=== PATIENT | female | born 1940 | race Caucasian/White ===

== ENCOUNTER 2022-01-01 10:00 | Outpatient (RCR) | payer MEDICARE, OTHER, SELFPAY ==
--- NOTE | 2021-11-28 09:52 | PT.OPEX ---
PT [place] Outpatient Eval PT [facility] Outpatient Eval Start: 11/27/21 09:41 Freq: Status: Active Protocol: Document 11/28/21 09:18 PAPI (Rec: 11/28/21 09:18 CLCharan [id number]) E-signed By Doreen Almanza PT Physical Therapy Outpatient Evaluation Insurance Information Recert Due Date 02/20/22 Insurance Name Medicare B Medical Diagnosis DDD / LBP Treating Diagnosis Acute LBP, reduced ease of ADL 's and self cares Reduced walk/stand and sit tolerances Trunk and core weakness Referring MD Dr Nabeel Nava Subjective Subjective Erika reports having LBP for the past 20+ years. It just comes and goes. It usually is better when I am walking regularly, which I have not. I just had X-Rays done and previous MRI. I do have some scoliosis, but nothing new. I have had injections, but nothing helps [facility]. I have not tried traction or TENS. We leave for [place] in about a month. I have been given exercises, but I don't do them. I really want to get started and cont there. Right now, trigger of not being able to sleep is what got me into PT. Just sitting even causes pain. Ok if in the recliner, but stiff chair might start pain in 15 min. Worse in the morning. Ice helps a bit, but again, I don't do it regularly. Walking feels better. I still do all of my home chores, just rest a bit. I use my cane if I walk more than a block. I really want to get back to walking a mile/30 min at least once per day. Pain Comments 0-7/10 andrea LB but worse on the Rt side. Pain now wraps around to the front of my pelvis. Denies N/T into the leg, but I do have occasional pain at lateral side of Rt leg - not constant though. Date of Last Physician Visit 11/13/21 Occupation Never has worked out of the home Precautions Treatment Precautions/Contraindications DDD / Arthritis, Hypertension, Osteoperosis Weight Bearing Status Full Weight Bearing Objective Range of Motion Trunk AROM: FF WNL and pain free / EXT 10% of normal / Andrea SB 75% of normal/ Andrea ROT 75% of normal. Dbl leg squat to knee flex of about 70 deg Strength Poor core isolation and activation Weakness of hip EXT and ABD andrea Palpation Very minimal movement at Rt L3 -S1 and upper Rt SIJ Much pain isolated here Balance & Gait Reduced trunk rotation UB on LB. reduced hip EXT / stride length Reduced WB into Rt LE. She states it sometimes feels like her leg will buckle Posture Flattened lumbar lordosis Other/Pertinent Objective Very minimal Rt SIJ movement in supine or prone Functional Test Performed & Score (-) slump test andrea (-) SLR test andrea Assessment Assessment/Impression 80 yo with DX of DDD and Acute LBP. She arrived to dept via IND ambulation without any AD. She presents with reduced andrea hip EXT, reduced UT/LT seperation with gait. She has slightly reduced WB into Rt LE . Significant reduction in trunk EXT with localized pain at Rt LB and Rt SIJ. (-) slump test and SLR test for Sciatic nerve involvement. However, very minimal AP or PA movement with light to moderate manual presure through lower lumbar vert and Rt SIJ. She has a slight Rt ant ilial rotation and reduced Lt to Rt side glide in supine. Pain at Rt SIJ and LB with spring mob in AP direction Rt. Lt leg is roughly an inch shorter. Weakness at andrea hip EXT and ABD. Poor core isolation and activation. She will benefit from MET/Mobs/STM and progressive stretch and strengthening to stabilize pelvis and improve movement in LB on pelvis. Also, trial heel lift Lt leg. Thank you for this referral. Plan of Care Rehabilitation Potential Good Physical Therapy Goals In 4-6 visits, Erika will be able to: 1. Report increased sitting tolerance to 30 min average 2. Walk at least 2 blocks without increased LBP greater than 3/10 75% of the time In 8-10 visits, Erika will be able to: 1. IND in entire HEP to cont with self cares once DC 2. Sleep up to 6 hours without awakening due to LB/SIJ pain 90% of the time 3. LTG of resume walking for exercise 1 mile daily Coordination/Communication With Referral Source Treatment Plan/Direct Interventions Joint Mobilization,Manual Therapy,Self-Care/Home Management,Therapeutic Activities,Therapeutic Exercises Frequency/Duration 2X/Wk for 9 weeks per physician referral. Patient Will Be Discharged From Therapy Completion of LTG(s),Skills Plateau,Independent w/HEP, Independently Progressing Evaluation Billing Untimed Code Treatment Minutes 34 Complexity Moderate Certification Information Initial Certification Date 11/28/21 Ending Certification Date 02/20/22 Provider Signature Shows Agreement With POC & Medical Necessity Physician Comment/Change Comment or Changes Physician NPI Number #
== END 2022-01-01 12:45 | disposition home or self-care (01) ==
PROVIDERS: PCP Family Medicine; Visit Provider Family Medicine
DX: M54.50 Low back pain, unspecified (principal); Z51.89 Encounter for other specified aftercare
CPT/HCPCS: 97110; 97140; 97162

== ENCOUNTER 2022-05-28 12:58 | Emergency (ER) | payer MEDICARE, OTHER, SELFPAY ==
[2022-05-28 13:19] VITALS: BP 175/83; PULSE 83; RESP 16; TEMP 36.9; O2SAT 97; BMI 31.1
[2022-05-28 14:24] LABS: Troponin, Point-of-Care* 0.27 ng/ml (0.01-0.04)
[2022-05-28 14:38] LABS: Lactate* 1.1 mmol/L (0.5-1.9)
[2022-05-28 14:40] VITALS: PULSE 63; O2SAT 97
[2022-05-28 14:40] LABS: Basophils Absolute Auto 0.03 K/uL (0.00-0.30); Basophils Percent Auto 0.5 % (0.0-3.0); Eosinophils Absolute Auto 0.02 K/uL (0.00-0.50); Eosinophils Percent Auto 0.3 % (0.0-7.0); Hematocrit 43.6 % (33.0-51.0); Hemoglobin* 14.7 gm/dL (12.0-16.0); Lymphocytes Percent Auto 16.7 % (20-44); Mean Corpuscular HGB Conc 34 gm/dL (32-36); Mean Corpuscular Hemoglobin 31 pg (26-34); Mean Corpuscular Volume 91 fL (80-100); Monocytes Percent Auto 8.6 % (0.0-11.0); Neutrophils Percent Auto 73.9 % (42.0-72.0); Platelet Count* 234 K/uL (140-440); White Blood Count* 5.94 K/uL (4.50-11.00)
[2022-05-28 14:41] VITALS: BP 123/54; PULSE 65; O2SAT 96
[2022-05-28 14:42] LABS: Slide Review Reflex No
[2022-05-28] MEDS: ASPIRIN 81 MG TAB.CHEW 324 MG PO (14:44)
[2022-05-28 14:45] VITALS: PULSE 65; O2SAT 97
--- NOTE | 2022-05-28 14:48 | ED_ITS ---
HPI - General Adult General Date Seen: 05/28/22 Chief complaint: Shortness of Breath/Dyspnea Stated complaint: Back/shoulder pain, chills, shakes Time Seen by Provider: 05/28/22 13:02 Source: patient Mode of arrival: ambulatory Limitations: no limitations History of Present Illness HPI narrative: Patient is a 81-year-old woman who says that when she woke up this morning she developed some pain in the back of her neck that went back into the back of her shoulders and down her arms. She does occasionally have pain in her neck, she has some degenerative disc disease, but typically does not have pain that goes into her arms. She says this pain was relatively severe, and as a result, she took 2 of her 's oxycodone. He has esophageal cancer. She does not typically take oxycodone. She says after about an hour, the neck pain improved and is largely gone, however she was left feeling somewhat shaky and fatigued. She just does not generally feel very well at this point. She has not had any chest pain although she has felt a little short of breath. She denies nausea or vomiting. She has not had fevers or cough. She denies similar previous symptoms. She does drink she says a couple of glasses of wine nightly. She does not smoke, she quit a number of years ago. Related Data Home Medications Medication Instructions Recorded Confirmed alendronate 70 mg tablet 70 mg PO .Every 7 Days 11/13/21 11/13/21 amlodipine 10 mg tablet 10 mg PO DAILY 11/13/21 11/13/21 aspirin 81 mg tablet,delayed 81 mg PO DAILY 11/13/21 11/13/21 release calcium carbonate 500 mg calcium 500 mg PO DAILY 11/13/21 11/13/21 (1,250 mg) tablet cholecalciferol (vitamin D3) 25 25 mcg PO DAILY 11/13/21 11/13/21 mcg (1,000 unit) tablet cyanocobalamin (vitamin B-12) 1,000 mcg PO DAILY 11/13/21 11/13/21 1,000 mcg tablet,extended release glucosamine sulfate 500 mg capsule 500 mg PO 11/13/21 11/13/21 hydrochlorothiazide 25 mg tablet 25 mg PO DAILY 11/13/21 11/13/21 levothyroxine 75 mcg tablet 75 mcg PO DAILY 11/13/21 11/13/21 vitamins A,C,E-ydcw-hslpaj 2,148 2 tab PO BID 11/13/21 11/13/21 mcg-113 mg-45 mg-17.4 mg tablet (PreserVision AREDS) Previous Rx's Medication Instructions Recorded methylprednisolone 4 mg tablets in See Rx Instructions PO PER PKG DIR 11/13/21 a dose pack (Medrol (John)) #21 ea Allergies Allergy/AdvReac Type Severity Reaction Status Date / Time enalapril Allergy Intermediate Rash, dizzy Verified 11/13/21 13:02 cephalexin Allergy Mild GI upset, Verified 11/13/21 13:02 vomiting Malaria Med Allergy Intermediate Rash Uncoded 11/13/21 13:02 Review of Systems Status of ROS: Reports: 10 or more systems reviewed and unremarkable except as noted in History and below [facility] Medical History Class 1 obesity Diverticulitis of intestine Left lower quadrant pain Surgical History History of bilateral inguinal hernia repair (06/2016) History of blepharoplasty (07/2016) History of tonsillectomy History of total abdominal hysterectomy and bilateral salpingo-oophorectomy Hx of cholecystectomy Family History Father Coronary artery disease, Onset Age: 65 High blood pressure Sister Thyroid disease Family/Other High blood pressure Mother Stroke, Onset Age: 92 High blood pressure Other Osteoarthritis Osteoporosis Social History Narrative: Exercises regularly- walking, weights 5/week , living in [place] Non-smoker Social drinker- 1 cocktail daily Smoking Status: Never smoker Exam Narrative: Exam Narrative: Vital signs as noted above. In general, an alert, well-appearing patient. Head: Normocephalic, atraumatic. Eyes: Pupils are equal reactive. Extraocular movements are full. Conjunctivae are normal. ENT: Mucous membranes are moist. Throat is normal. Neck: Supple without lymphadenopathy. Heart: Regular rate and rhythm. No murmur or rub. Lungs: Clear bilaterally. No increased work of breathing, crackles or wheezes. Abdomen: Soft and nontender. No organomegaly. Extremities: Well perfused. No edema. No calf tenderness. Pulses intact. Neurologic: Patient is alert and oriented to person and place. Speech is fluent. Face is symmetric. Moves all extremities equally. Affect: Normal. Skin: Warm and dry. Well perfused. Const: Vital Signs, click to edit/add: Vital Signs - 24 hr 05/28/22 13:19 05/28/22 14:57 05/28/22 14:40 Temperature 98.5 F Pulse Rate 63 Pulse Rate [Pulse Oximeter] 83 Respiratory Rate 16 Blood Pressure Blood Pressure [Le ft Upper Arm] 175/83 H Pulse Oximetry 97 96 97 Oxygen Delivery Me thod Room Air 05/28/22 14:41 05/28/22 14:45 Temperature Pulse Rate 65 65 Pulse Rate [Pulse Oximeter] Respiratory Rate Blood Pressure 123/54 L Blood Pressure [Le ft Upper Arm] Pulse Oximetry 96 97 Oxygen Delivery Me thod Documenting provider has reviewed patient's vital signs: yes Course Course Hospital Course: On arrival, patient had an EKG which shows a right bundle branch block. She has T-wave inversions noted in leads 3 and F, she does not have any acute ST segment changes. No previous EKGs available for comparison. She did have an echo done in 2014 at which time she had somewhat hyperdynamic left ventricular function with an EF of 70-75% and no regional wall motion abnormalities. She had a CBC showing a normal white blood cell count and hemoglobin of 15, a lactate of 1.1 and her point of care troponin returned at 0.27. A lab troponin is pending at this time. Other labs are also pending. She has not had any specific complaints at this time, an IV was established, she is given an aspirin as well as some normal saline IV. She is maintained on the monitor and oximeter. Lab troponin is less than 0.1, suggesting that the point of care troponin is probably falsely elevated. Remainder of her labs are unremarkable. Electrolytes are normal LFTs are normal, CRP is 0.5. TSH is 2.1. Urinalysis is negative. COVID is negative. Blood alcohol is less than 0.01. I do think it is reasonable to recheck another point of care troponin and this is pending, but I do think most likely her symptoms are due to taking a rather large dose of oxycodone this morning. Other considerations included acute coronary syndrome, anemia, thyroid disease or other metabolic derangement, urinary tract infection or other infectious process, but these have been ruled out. Assuming the repeat troponin is negative, patient can go home. Follow-up with primary care as needed. Return for any recurrent or severe symptoms says these would be unexpected if symptoms were due to oxycodone. She does have some residual soreness in her trapezius muscles bilaterally, we talked about a little bit, she had some Tylenol here and can use that at home. We talked about heat, ice, Biofreeze, etcetera. See primary care if this persists or worsens. Vital Signs Vital signs: Initial Vital Signs Temperature 98.5 F 05/28/22 13:19 Temperature Source Temporal Artery Scan 05/28/22 13:19 Pulse Rate 83 05/28/22 13:19 Pulse Rhythm 05/28/22 13:19 Respiratory Rate 16 05/28/22 13:19 Blood Pressure 175/83 H 05/28/22 13:19 Blood Pressure Mean 113 05/28/22 13:19 Pulse Oximetry 97 05/28/22 13:19 Oxygen Delivery Method 05/28/22 13:19 Vital Signs Temperature 98.5 F 05/28/22 13:19 Pulse Rate 83 05/28/22 13:19 Respiratory Rate 16 05/28/22 13:19 Blood Pressure 175/83 H 05/28/22 13:19 Pulse Oximetry 97 05/28/22 13:19 Oxygen Delivery Method 05/28/22 13:19 Temperature 98.5 F 05/28/22 13:19 Pulse Rate 65 05/28/22 14:45 Respiratory Rate 16 05/28/22 13:19 Blood Pressure 123/54 L 05/28/22 14:41 Pulse Oximetry 96 05/28/22 14:57 Oxygen Delivery Method 05/28/22 13:19 Medical Decision Making Lab Data Labs: Lab Results 05/28/22 05/28/22 05/28/22 Range/Units 13:38 13:39 14:10 WBC (4.50-11.00) K/uL RBC (4.00-5.20) m/uL Hgb (12.0-16.0) gm/dL Hct (33.0-51.0) % MCV (80-100) fL MCH (26-34) pg MCHC (32-36) gm/dL RDW Coeff of Carmina (11.5-15.5) % Plt Count (140-440) K/uL Neut % (Auto) (42.0-72.0) % Lymph % (Auto) (20-44) % [place] % (Auto) (0.0-11.0) % Eos % (Auto) (0.0-7.0) % Baso % (Auto) (0.0-3.0) % Neut # (Auto) (1.7-7.0) K/uL Lymph # (Auto) (0.90-2.90) K/uL [place] # (Auto) (0.00-0.90) K/UL Eos # (Auto) (0.00-0.50) K/uL Baso # (Auto) (0.00-0.30) K/uL Sodium (135-149) mmol/L Potassium (3.6-5.1) mmol/L Chloride (96-114) mmol/L Carbon Dioxide (20-32) mmol/L BUN (7-30) mg/dL Creatinine (0.5-1.5) mg/dL Estimated Creat Clear Estimated GFR ml/min Glucose (60-115) mg/dL Lactate (0.5-1.9) mmol/L Calcium (8.4-10.6) mg/dL Total Bilirubin (0.1-1.5) mg/dL Direct Bilirubin (0.0-0.5) mg/dL AST (12-35) U/L ALT (4-35) U/L Alkaline Phosphatase (40-150) U/L Troponin I < 0.01 L (0.01-0.04) ng/mL C-Reactive Protein (0.5-1.0) mg/dL Total Protein (6.0-8.3) g/dL Albumin (3.3-5.0) g/dL TSH (0.270-4.200) uIU/mL Urine Color (Yellow) Urine Appearance (Clear) Urine pH (5.0-8.5) Ur Specific [place] (1.000-1.030) Urine Protein (Negative) Urine Glucose (UA) (Negative) Urine Ketones (Negative) Urine Blood (Negative) Urine Nitrite (Negative) Urine Bilirubin (Negative) Urine Urobilinogen (0.2-1.0) Ur Leukocyte Esterase (Negative) Urine RBC (0-2) Urine WBC (0-5) Urine WBC Clumps (None) Ur Squamous Epith Cells (None-Few) Urine Bacteria (None) Ethyl Alcohol < 0.01 L (0.01-0.03) % SARS-CoV-2 (PCR) Negative SARS-CoV-2 (Negative) POC Troponin I 0.27 H (0.01-0.04) ng/ml 05/28/22 05/28/22 05/28/22 Range/Units 14:30 14:30 14:30 WBC 5.94 (4.50-11.00) K/uL RBC 4.80 (4.00-5.20) m/uL Hgb 14.7 (12.0-16.0) gm/dL Hct 43.6 (33.0-51.0) % MCV 91 (80-100) fL MCH 31 (26-34) pg MCHC 34 (32-36) gm/dL RDW Coeff of Carmina 14.0 (11.5-15.5) % Plt Count 234 (140-440) K/uL Neut % (Auto) 73.9 H (42.0-72.0) % Lymph % (Auto) 16.7 L (20-44) % [place] % (Auto) 8.6 (0.0-11.0) % Eos % (Auto) 0.3 (0.0-7.0) % Baso % (Auto) 0.5 (0.0-3.0) % Neut # (Auto) 4.40 (1.7-7.0) K/uL Lymph # (Auto) 1.00 (0.90-2.90) K/uL [place] # (Auto) 0.50 (0.00-0.90) K/UL Eos # (Auto) 0.02 (0.00-0.50) K/uL Baso # (Auto) 0.03 (0.00-0.30) K/uL Sodium 137 (135-149) mmol/L Potassium 3.9 (3.6-5.1) mmol/L Chloride 104 (96-114) mmol/L Carbon Dioxide 29 (20-32) mmol/L BUN 19 (7-30) mg/dL Creatinine 0.6 (0.5-1.5) mg/dL Estimated Creat Clear 36.08 Estimated GFR 91 ml/min Glucose 103 (60-115) mg/dL Lactate (0.5-1.9) mmol/L Calcium 9.4 (8.4-10.6) mg/dL Total Bilirubin 0.7 (0.1-1.5) mg/dL Direct Bilirubin 0.1 (0.0-0.5) mg/dL AST 48 H (12-35) U/L ALT 28 (4-35) U/L Alkaline Phosphatase 65 (40-150) U/L Troponin I (0.01-0.04) ng/mL C-Reactive Protein 0.5 (0.5-1.0) mg/dL Total Protein 7.9 (6.0-8.3) g/dL Albumin 4.6 (3.3-5.0) g/dL TSH (0.270-4.200) uIU/mL Urine Color (Yellow) Urine Appearance (Clear) Urine pH (5.0-8.5) Ur Specific [place] (1.000-1.030) Urine Protein (Negative) Urine Glucose (UA) (Negative) Urine Ketones (Negative) Urine Blood (Negative) Urine Nitrite (Negative) Urine Bilirubin (Negative) Urine Urobilinogen (0.2-1.0) Ur Leukocyte Esterase (Negative) Urine RBC (0-2) Urine WBC (0-5) Urine WBC Clumps (None) Ur Squamous Epith Cells (None-Few) Urine Bacteria (None) Ethyl Alcohol (0.01-0.03) % SARS-CoV-2 (PCR) (Negative) POC Troponin I (0.01-0.04) ng/ml 05/28/22 05/28/22 05/28/22 Range/Units 14:30 14:30 15:12 WBC (4.50-11.00) K/uL RBC (4.00-5.20) m/uL Hgb (12.0-16.0) gm/dL Hct (33.0-51.0) % MCV (80-100) fL MCH (26-34) pg MCHC (32-36) gm/dL RDW Coeff of Carmina (11.5-15.5) % Plt Count (140-440) K/uL Neut % (Auto) (42.0-72.0) % Lymph % (Auto) (20-44) % [place] % (Auto) (0.0-11.0) % Eos % (Auto) (0.0-7.0) % Baso % (Auto) (0.0-3.0) % Neut # (Auto) (1.7-7.0) K/uL Lymph # (Auto) (0.90-2.90) K/uL [place] # (Auto) (0.00-0.90) K/UL Eos # (Auto) (0.00-0.50) K/uL Baso # (Auto) (0.00-0.30) K/uL Sodium (135-149) mmol/L Potassium (3.6-5.1) mmol/L Chloride (96-114) mmol/L Carbon Dioxide (20-32) mmol/L BUN (7-30) mg/dL Creatinine (0.5-1.5) mg/dL Estimated Creat Clear Estimated GFR ml/min Glucose (60-115) mg/dL Lactate 1.1 (0.5-1.9) mmol/L Calcium (8.4-10.6) mg/dL Total Bilirubin (0.1-1.5) mg/dL Direct Bilirubin (0.0-0.5) mg/dL AST (12-35) U/L ALT (4-35) U/L Alkaline Phosphatase (40-150) U/L Troponin I (0.01-0.04) ng/mL C-Reactive Protein (0.5-1.0) mg/dL Total Protein (6.0-8.3) g/dL Albumin (3.3-5.0) g/dL TSH 2.150 (0.270-4.200) uIU/mL Urine Color Yellow (Yellow) Urine Appearance Clear (Clear) Urine pH 7.0 (5.0-8.5) Ur Specific [place] 1.010 (1.000-1.030) Urine Protein Negative (Negative) Urine Glucose (UA) Negative (Negative) Urine Ketones Negative (Negative) Urine Blood Negative (Negative) Urine Nitrite Negative (Negative) Urine Bilirubin Negative (Negative) Urine Urobilinogen 0.2 (0.2-1.0) Ur Leukocyte Esterase Negative (Negative) Urine RBC 0-2 (0-2) Urine WBC 0-2 (0-5) Urine WBC Clumps None (None) Ur Squamous Epith Cells None (None-Few) Urine Bacteria None (None) Ethyl Alcohol (0.01-0.03) % SARS-CoV-2 (PCR) (Negative) POC Troponin I (0.01-0.04) ng/ml 05/28/22 Range/Units 16:10 WBC (4.50-11.00) K/uL RBC (4.00-5.20) m/uL Hgb (12.0-16.0) gm/dL Hct (33.0-51.0) % MCV (80-100) fL MCH (26-34) pg MCHC (32-36) gm/dL RDW Coeff of Carmina (11.5-15.5) % Plt Count (140-440) K/uL Neut % (Auto) (42.0-72.0) % Lymph % (Auto) (20-44) % [place] % (Auto) (0.0-11.0) % Eos % (Auto) (0.0-7.0) % Baso % (Auto) (0.0-3.0) % Neut # (Auto) (1.7-7.0) K/uL Lymph # (Auto) (0.90-2.90) K/uL [place] # (Auto) (0.00-0.90) K/UL Eos # (Auto) (0.00-0.50) K/uL Baso # (Auto) (0.00-0.30) K/uL Sodium (135-149) mmol/L Potassium (3.6-5.1) mmol/L Chloride (96-114) mmol/L Carbon Dioxide (20-32) mmol/L BUN (7-30) mg/dL Creatinine (0.5-1.5) mg/dL Estimated Creat Clear Estimated GFR ml/min Glucose (60-115) mg/dL Lactate (0.5-1.9) mmol/L Calcium (8.4-10.6) mg/dL Total Bilirubin (0.1-1.5) mg/dL Direct Bilirubin (0.0-0.5) mg/dL AST (12-35) U/L ALT (4-35) U/L Alkaline Phosphatase (40-150) U/L Troponin I (0.01-0.04) ng/mL C-Reactive Protein (0.5-1.0) mg/dL Total Protein (6.0-8.3) g/dL Albumin (3.3-5.0) g/dL TSH (0.270-4.200) uIU/mL Urine Color (Yellow) Urine Appearance (Clear) Urine pH (5.0-8.5) Ur Specific [place] (1.000-1.030) Urine Protein (Negative) Urine Glucose (UA) (Negative) Urine Ketones (Negative) Urine Blood (Negative) Urine Nitrite (Negative) Urine Bilirubin (Negative) Urine Urobilinogen (0.2-1.0) Ur Leukocyte Esterase (Negative) Urine RBC (0-2) Urine WBC (0-5) Urine WBC Clumps (None) Ur Squamous Epith Cells (None-Few) Urine Bacteria (None) Ethyl Alcohol (0.01-0.03) % SARS-CoV-2 (PCR) (Negative) POC Troponin I 0.00 L (0.01-0.04) ng/ml Discharge Plan Discharge Clinical Impression: Acute neck pain, Fatigue Patient Disposition: Home, Self-Care Condition: Stable Instructions: Acute Neck Pain (ED) Additional Instructions: Follow-up with primary care provider. If you have some recurrent neck pain, try Tylenol 1000 mg up to 3 times a day for pain control. Can try ice or heat, Biofreeze. Activity Level: Activity as Tolerated Discharge Diet: Regular Prescriptions: No Action cholecalciferol (vitamin D3) 25 mcg (1,000 unit) tablet 25 mcg PO DAILY hydrochlorothiazide 25 mg tablet 25 mg PO DAILY glucosamine sulfate 500 mg capsule 500 mg PO calcium carbonate 500 mg calcium (1,250 mg) tablet 500 mg PO DAILY levothyroxine 75 mcg tablet 75 mcg PO DAILY aspirin 81 mg tablet,delayed release (DR/EC) 81 mg PO DAILY cyanocobalamin (vitamin B-12) 1,000 mcg tablet extended release 1,000 mcg PO DAILY PreserVision AREDS 2,148 mcg-113 mg-45 mg-17.4mg tablet 2 tab PO BID Rx Instructions: administer with AM and PM meals alendronate 70 mg tablet 70 mg PO .Every 7 Days amlodipine 10 mg tablet 10 mg PO DAILY methylprednisolone [Medrol (John)] 4 mg tablets,dose pack See Rx Instructions PO PER PKG DIR Qty: 21 0RF Rx Instructions: PO PER PKG DIR Follow Up/Referrals: Kimberly Meehan MD [Primary Care Provider] - Stand Alone Forms: [employer] Info Instructions
[2022-05-28 14:57] VITALS: O2SAT 96
[2022-05-28 15:05] LABS: Chloride* 104 mmol/L (96-114); Potassium* 3.9 mmol/L (3.6-5.1); Sodium* 137 mmol/L (135-149)
[2022-05-28 15:07] LABS: Creatinine* 0.6 mg/dL (0.5-1.5); Est. Creatinine Clearance* 36.08; Estimated Glomerular Filt Rate 91 ml/min
[2022-05-28 15:08] LABS: Blood Urea Nitrogen* 19 mg/dL (7-30); Carbon Dioxide* 29 mmol/L (20-32); Glucose* 103 mg/dL (60-115)
[2022-05-28 15:09] LABS: Calcium* 9.4 mg/dL (8.4-10.6)
[2022-05-28 15:11] LABS: C Reactive Protein* 0.5 mg/dL (0.5-1.0)
[2022-05-28 15:12] LABS: Ethanol* < 0.01 % (0.01-0.03); Troponin I* < 0.01 ng/mL (0.01-0.04)
[2022-05-28 15:16] LABS: SARS PCR* Negative SARS-CoV-2 (Negative)
[2022-05-28 15:21] LABS: Albumin* 4.6 g/dL (3.3-5.0)
[2022-05-28 15:23] LABS: Appearance Urine Clear (Clear); Bilirubin Urine Negative (Negative); Blood Urine Negative (Negative); Color Urine Yellow (Yellow); Glucose Urine Negative (Negative); Ketones Urine Negative (Negative); Leukocyte Esterase Urine Negative (Negative); Nitrite Urine Negative (Negative); Protein Urine Negative (Negative); Urobilinogen Urine 0.2 (0.2-1.0)
[2022-05-28 15:23] LABS: Bilirubin Direct* 0.1 mg/dL (0.0-0.5); Bilirubin Total* 0.7 mg/dL (0.1-1.5)
[2022-05-28 15:24] LABS: Alanine Aminotransferase* 28 U/L (4-35); Alkaline Phosphatase* 65 U/L (40-150); Aspartate Amino Transferase* 48 U/L (12-35); Total Protein* 7.9 g/dL (6.0-8.3)
[2022-05-28 15:34] LABS: RBC Urine 0-2 (0-2); WBC Urine 0-2 (0-5)
[2022-05-28] MEDS: ACETAMINOPHEN 500 MG TABLET 1000 MG PO (16:34)
== END 2022-05-28 17:41 | disposition home or self-care (01) ==
PROVIDERS: Emergency Provider Emergency Medicine; PCP Family Medicine
DX: M54.2 Cervicalgia (principal); R53.83 Other fatigue
CPT/HCPCS: 36415; 80048; 80076; 81001; 82077; 83605; 84443; 84484; 85025; 86140; 87635; 93005; 94761; 99284; A9270

== ENCOUNTER 2022-07-10 09:32 | Outpatient (CLI) | payer MEDICARE, OTHER, SELFPAY | END 2022-07-10 09:33 | disposition home or self-care (01) | PROVIDERS: PCP Family Medicine; Visit Provider Family Medicine | DX: E53.8 Deficiency of other specified B group vitamins (principal); E55.9 Vitamin D deficiency, unspecified; E03.9 Hypothyroidism, unspecified; I10 Essential (primary) hypertension; M81.0 Age-related osteoporosis without current pathological fracture; Z13.6 Encounter for screening for cardiovascular disorders | CPT/HCPCS: 80053; 80061; 82306; 82607; 84443 ==

== ENCOUNTER 2022-09-11 09:31 | Outpatient (CLI) | payer MEDICARE, OTHER, SELFPAY | END 2022-09-11 09:32 | disposition home or self-care (01) | PROVIDERS: PCP Family Medicine; Visit Provider Family Medicine | DX: I10 Essential (primary) hypertension (principal); R10.32 Left lower quadrant pain; E78.5 Hyperlipidemia, unspecified | CPT/HCPCS: 80053 ==

== ENCOUNTER 2022-09-20 14:15 | Outpatient (CLI) | payer MEDICARE, OTHER, SELFPAY ==
--- NOTE | 2022-09-20 14:30 | XR_ITS ---
Patient: ADAM KAUFMAN Facility:?[facility] Patient ID:?[id number] Site Patient ID:?[id number]. Site :?[id number] Study:?DEXA-Bone Density-09/20/2022 2:54:52 PM Ordering Physician:Ole Vasquez Final Report: DXA BONE MINERAL DENSITY STUDY Current height (in): 62.0. Weight (lb): 165.0. Menopause age: 41. Ethnicity: White. Reason for exam: Osteoporosis. 1. Have you had a previous hip or vertebral fracture? No. 2. Have you had any fractures during your adult life which did not result from significant trauma (e.g., auto accident)? No. 3. Did either of your parents have a hip fracture? No. 4. Do you smoke? No. 5. Have you ever taken Glucocorticoids? No. 6. Do you have rheumatoid arthritis? No. 7. Do you have secondary osteoporosis? No. 8. Do you drink 3 or more alcoholic drinks per day? No. 9. Are you being treated for osteoporosis? Yes. 10. Have you ever taken any of the following medications: Actonel, Evista, Fosamax, Miacalcin, Reclast, Boniva, Forteo, HRT (i.e. estrogen/hormone therapy), Protelos, Prolia, Vitamin D, Calcium, other ? please specify. ANSWER: Yes, Fosamax, vitamin D, HRT, calcium. 11. Do you have any of the following medical conditions: Anorexia or bulimia, asthma or emphysema, end stage renal disease, hyperparathyroidism, any seizure disorders, cancer, inflammatory bowel diseases, hysterectomy, other ? please specify. ANSWER: Yes, hysterectomy. 12. What was your maximum height (inches)? 64. 13. Do you perform weight bearing exercise regularly? No. 14. Do you regularly consume dairy products? No. 15. Do you drink caffeinated beverages? Yes. 16. At what age did your period start? 16. 17. Are you premenopausal? No. 18. How many full term pregnancies have you had? 3. 19. Have you ever missed your period for more than 6 months in a row (not including or menopause)? No. TECHNIQUE: Bone mineral density study was performed using the [place]. FINDINGS: The results of the study expressed as bone mineral density (BMD) are as follows: Lumbar spine L2 to L3: BMD: 1.272 g/cm2. T-score: 1.9. Z-score: 4.6. Neck Left: BMD: 0.731 g/cm2. T-score: -1.1. Z-score: 1.2. Right: BMD: 0.710 g/cm2. T-score: -1.2. Z-score: 1.0. Total Left: BMD: 0.936 g/cm2. T-score: -0.1. Z-score: 2.0. Right: BMD: 0.878 g/cm2. T-score: -0.5. Z-score: 1.5. IMPRESSION: Osteoporosis. *Comparison exams done prior to 08/2019 were performed on different unit, Stupil. COMPARISON: Compared with scan of 07/29/2017, the bone mineral density has decreased by 1.5 percent at the spine and increased by 12.7 percent at the hip. Reymundo Willis M.D. Diagnostic Radiologist [email or web address] DSM/lisetw: D& Transcribed: 11:08 am DW/Dictated by: Reymundo Willis MD @ 09/24/2022 8:55:00 AM Signed by:?Reymundo Willis MD @09/24/2022 4:48:06 PM (Electronic Signature)
--- NOTE | 2022-09-20 15:00 | CRLHL7_ITS ---
For Patients: As a result of the Century Cures Act, medical imaging exams and procedure reports are released immediately into your electronic medical record. You may view this report before your referring provider. If you have questions, please contact your health care provider. BILATERAL SCREENING MAMMOGRAM WITH COMPUTER-AIDED DETECTION AND TOMOSYNTHESIS TECHNIQUE: CC and MLO views were obtained. These mammographic images have been obtained using full-field digital technique. These mammographic images were interpreted with the benefit of computer-aided detection. Breast Tomosynthesis was used in this interpretation. COMPARISON FILM: 03/01/17, 02/28/16, 12/13/14. FINDINGS: There are scattered areas of fibroglandular density IMPRESSION: There is no radiographic evidence for malignancy. ASSESSMENT: BI-RADS Category 1: Negative RECOMMENDATION: Routine screening mammogram in 1 year. A lay language report of this examination will be provided to the patient. Reymundo Willis M.D. Diagnostic Radiologist [email or web address] RYAN/Dictated by: Reymundo Willis MD @ 09/21/2022 12:05:00 PM (Electronically Signed)
== END 2022-09-20 14:16 | disposition home or self-care (01) ==
LOC: RAD 14:16
PROVIDERS: PCP Family Medicine; Visit Provider Family Medicine
DX: Z12.31 Encounter for screening mammogram for malignant neoplasm of breast (principal); M81.0 Age-related osteoporosis without current pathological fracture; K57.30 Diverticulosis of large intestine without perforation or abscess without bleeding; K40.90 Unilateral inguinal hernia, without obstruction or gangrene, not specified as recurrent
CPT/HCPCS: 77063; 77067; 77080

== ENCOUNTER 2022-09-21 13:31 | Outpatient (CLI) | payer MEDICARE, OTHER, SELFPAY ==
--- NOTE | 2022-09-21 14:00 | CRLHL7_ITS ---
For Patients: As a result of the Century Cures Act, medical imaging exams and procedure reports are released immediately into your electronic medical record. You may view this report before your referring provider. If you have questions, please contact your health care provider. Indication: Bilateral lower abdominal pain x 3 months - intermittent Technique: Postcontrast CT abdomen and pelvis. 82 cc Isovue 370 intravenous contrast. Please note that all CT scans at this facility use dose modulation, iterative reconstruction, and/or weight-based dosing when appropriate to reduce radiation dose to as low as reasonably achievable. Comparison: 5.16.17 Findings: Mild scarring is present in both lung bases. The cardiac size is upper limits of normal. Normal visualized breast tissue. No hiatal hernia. Atherosclerotic changes. Stable appearance of the liver. Calcified granulomas in the spleen. Adrenal glands are normal. No hydronephrosis. Pancreas is normal. No biliary obstruction. No enlarged lymph nodes. Postop changes of distal colectomy with no evidence of bowel obstruction or inflammation. No pelvic soft tissue mass. The bladder is normal. Postop changes of bilateral inguinal hernia repair with chronic areas of low density at the proximal inguinal canals. No abscess or free air. No free fluid. Degenerative changes within the lumbar spine. No fracture. Impression: No bowel obstruction. Minimal diverticulosis without diverticulitis. Postop changes of distal colectomy without abnormality of the anastomosis. Sequela of granulomatous disease with innumerable calcified splenic granulomas. Chronic postop changes of bilateral inguinal hernia repair. Please note that all CT scans at this facility use dose modulation, iterative reconstruction, and/or weight-based dosing when appropriate to reduce radiation dose to as low as reasonably achievable. Dictated by Reymundo Willis MD @ 09/21/2022 3:00:01 PM (Electronically Signed)
== END 2022-09-21 13:32 | disposition home or self-care (01) ==
LOC: CT 13:32
PROVIDERS: PCP Family Medicine; Visit Provider Family Medicine
DX: R10.32 Left lower quadrant pain (principal); K57.90 Diverticulosis of intestine, part unspecified, without perforation or abscess without bleeding
CPT/HCPCS: 74177; Q9967

== ENCOUNTER 2023-06-19 10:52 | Outpatient (CLI) | payer MEDICARE, OTHER, SELFPAY | END 2023-06-19 10:53 | disposition home or self-care (01) | LOC: NFLDREF 06-20 06:40 | PROVIDERS: PCP Family Medicine; Referring Provider Family Medicine; Visit Provider Family Medicine | DX: E03.9 Hypothyroidism, unspecified (principal); E55.9 Vitamin D deficiency, unspecified; I10 Essential (primary) hypertension; M81.0 Age-related osteoporosis without current pathological fracture; E78.5 Hyperlipidemia, unspecified | CPT/HCPCS: 80053; 80061; 82306; 84443 ==

== ENCOUNTER 2023-07-10 08:53 | Outpatient (CLI) | payer MEDICARE, OTHER, SELFPAY ==
--- OUTSIDE RECORDS SUMMARY | 2023-07-10 08:56 | XMS_ITS | Clinical Summary ---
Author Name Unknown Organization [facility] Address [place], [place] [address] Care Team Providers Care Savings Teller Name Role Phone Pcp, No Primary Care Provider Unavailabl e Allergies Active Allergy Reactions Criticality Noted Date Comments Cephalexin Vomiting High 07/29/2018 Quinine Hives 03/04/2007 Enalapril Hives 03/04/2007 Medications Medication Sig Dispensed Refills Start Date End Date Status CALCIUM 500 MG (1,250 MG) TAB 0 03/06/2007 Active amLODIPine (NORVASC) 10 mg tabletIndications:Unsp ecified essential hypertension Take 1 tablet by mouth once daily. 90 tablet 3 01/19/2010 Active hydrochlorothiazide (HCTZ) 25 mg tablet Take 1 tablet by mouth once daily. 0 04/30/2013 Active alendronate (FOSAMAX) 70 mg tablet Take 1 tablet by mouth once a week in the morning. 07/01/2018 Active levothyroxine (SYNTHROID) 75 mcg tablet Take 1 tablet by mouth once daily. 06/10/2018 Active Active Problems Problem Noted Date Diagnosed Date Screen for colon cancer 03/29/2010 Trochanteric bursitis 11/30/2009 Lumbar Facet Arthropathy 02/04/2009 Degeneration of lumbar or lumbosacral interverte bral disc 02/04/2009 Unspecified essential hypertension 03/04/2007 Symptomatic menopausal or female climacteric sta ara 03/04/2007 Osteoarthrosis, unspecified whether generalized or localized, unspecified site 03/04/2007 Immunizations Name Administration Dates Next Due Influenza, IIV3 (Age >=3 years) 01/20/20 10,01/18/2009,12/23/2007,2006 Pneumococcal Poly,23-Valent (Pneumovax) 01/19/2010 Tdap 03/04/2007 Zoster (Zostavax-ZVL, live) 02/22/2010 Family History Medical History Relation Name Comments Cancer-prostate Father Heart Disease Father Hyperlipidemia Father Hypertension Father Cancer-colon Maternal Grandmother Arthritis Mother Heart Disease Mother CHF Hyperlipidemia Mother Hypertension Mother Osteoporosis Mother Stroke Mother at 92 Heart Disease Paternal Grandfather Cancer Paternal Grandmother cervica l Arthritis Sister 1 Osteoporosis Sister 2 on Fosamax at 5 3 Relation Name Status Comments Father Maternal Grandmother Mother Paternal Grandfather Paternal Grandmother Sister 1 Sister 2 Social History Tobacco Use Types Packs/Day Years Used Date Smoking Tobacco: Never Smokeless Tobacco: Never Tobacco Cessation:Counseling Given: Yes Alcohol Use Standard Drinks/Week Comments Yes 0 (1 standard drink = 0.6 oz pur e alcohol) 1-2 per day, mixed drinks Sex and Gender Information Value Date Recorded Sex Assigned at Not on file Gender Identity Not on file Sexual Orientation Not on file Obstetrics History Para Term AB IAB SAB Ectopic Multiple Livin g Live Births 3 3 Date Outcome GA Total Labor Labor/2nd/3rd Weight Sex Delivery Anes PTL Briana A1 A5 Name Cl in Last Filed Vital Signs Vital Sign Reading Time Taken Comments Blood Pressure 124/79 07/29/2018 3:49 PM CDT tow er Pulse 74 07/29/2018 3:49 PM CDT Temperature 36.4 ??C (97.5 ??F) 05/01/2013 11:[address] Respiratory Rate - - Oxygen Saturation 97% 07/29/2018 3:49 PM CDT Inhaled Oxygen Concentration - - Weight 81.2 kg (179 lb) 05/01/2013 11:47 AM OFFICE SERVICES REPRESENTATIVE Height 158.8 cm (5' 2.5) 05/01/2013 11:47 AM CS T Body Mass Index 32.22 05/01/2013 11:47 AM OFFICE SERVICES REPRESENTATIVE Plan of Treatment Upcoming Encounters Date Type Department Care Team (Late st Contact Info) Description 07/10/2023 9:00 AM CDT Ancillary Procedure [facility] [address] [place] [address] Health Maintenance Due Date Last Done Comments Depression screening for age 12+ 1954 BMI (ht and wt on same day) for age 18+ 1960 Medicare Wellness for age 65+ 12/14/2007 Zoster (shingles) series for age 50+ (2 of 3) 04/19/2010 02/22/2010 Pneumococcal series for age 65+ (2 of 2 - PCV) 01/19/2011 01/19/2010 Tetanus booster 03/04/2017 03/04/2007 COVID-19 vaccine series ( - 2022-24 season) 2022 Influenza for age 65+ 11/17/2023 01/19/2010 , 01/18/2009, 12/23/2007, Additional history exists Tdap Completed 03/04/2007 DEXA/DXA scan for age 65+ Completed 06/19/2007 Procedures Procedure Name Priority Date/Time Associated Diagnosis Comments XR DXA BONE DENSITY 2 SITES AXIAL Routine 06/19/2007 9:15 AM CDT Screening Osteoporosis from Last 3 Months or Most Recently Relevant to Health Maintenance Results * XR DEXA BONE DENSITY 2 SITES (06/19/2007 9:15 AM CDT) Anatomical Region Laterality Modality Spine, HIPS, HIPL, HIPR Other 06/19/2007 9:15 AM CDT Narrative 06/20/2007 9:31 AM CDT Please see scanned document for results of this study. Procedure Note Shabbir Butler MD - 06/20/2007 Please see scanned document for results of this study. Donna Mercado NP DEXA from Last 3 Months or Most Recently Relevant to Health Maintenance Care Teams Savings Teller Relationship Specialty Start Date End Date Pcp, No . PCP - General 05/11/15
== END 2023-07-10 08:54 | disposition home or self-care (01) ==
LOC: RAD 08:54
PROVIDERS: PCP Family Medicine; Visit Provider Family Medicine
DX: I34.0 Nonrheumatic mitral (valve) insufficiency (principal); I51.7 Cardiomegaly; I35.0 Nonrheumatic aortic (valve) stenosis
CPT/HCPCS: 93306

== ENCOUNTER 2023-10-11 07:30 | Outpatient (CLI) | payer MEDICARE, OTHER, SELFPAY ==
--- OUTSIDE RECORDS SUMMARY | 2023-10-11 07:33 | XMS_ITS | Clinical Summary ---
Author Organization [facility] Address [place], [place] [address] Care Team Providers Care Shear Assembler Name Role Phone Pcp, No Primary Care [...] Next Due Influenza, IIV3 (Age >=3 years) 01/20/20,01/18/2009,12/23/2007,2006 Pneumococcal Poly,23-Valent (Pneumovax) 01/19/2010 Tdap 03/04/2007 Zoster [...] Outcome GA Total Labor Labor/2nd/3rd Weight Sex Type Anes PTL Briana A1 A5 Name Clin Last Filed Vital Signs Vital Sign Reading Time Taken Comments Blood Pressure 124/79 07/29/2018 3:49 PM CDT tow er Pulse 74 07/29/2018 3:49 PM CDT Temperature 36.4 ??C (97.5 ??F) 05/01/2013 11:[address] Respiratory Rate - - Oxygen Saturation 97% 07/29/2018 3:49 PM CDT Inhaled Oxygen Concentration - - Weight 81.2 kg (179 lb) 05/01/2013 11:47 AM CENTRAL STATION OPERATOR Height 158.8 cm (5' 2.5) 05/01/2013 11:47 AM CS T Body Mass Index 32.22 05/01/2013 11:47 AM CENTRAL STATION OPERATOR Plan of Treatment Health Maintenance Due Date Last Done Comments Depression screening for age 12+ 1954 BMI (ht and wt on same day) for age 18+ 1960 Medicare Wellness for age 65+ 12/14/2007 Zoster (shingles) series for age 50+ (2 of 3) 04/19/2010 02/22/2010 Pneumococcal series for age 65+ (2 of 2 - PCV) 01/19/2011 01/19/2010 Tetanus booster 03/04/2017 03/04/2007 COVID-19 vaccine series (2022-24 season) 2022 Influenza for age 65+ 11/17/2023 [...] Recently Relevant to Health Maintenance Care Teams Shear Assembler Relationship Specialty Start Date End Date Pcp, No . PCP - General 05/11/15
--- NOTE | 2023-10-11 07:45 | CRLHL7_ITS ---
For Patients: As a result of the Century Cures Act, medical imaging exams and procedure reports are released immediately into your electronic medical record. You may view this report before your referring provider. If you have questions, please contact your health care provider. BILATERAL SCREENING MAMMOGRAM WITH COMPUTER-AIDED DETECTION AND TOMOSYNTHESIS TECHNIQUE: CC and MLO views were obtained. These mammographic images have been obtained using full-field digital technique. These mammographic images were interpreted with the benefit of computer-aided detection. Breast Tomosynthesis was used in this interpretation. COMPARISON FILM: 09/30/22, 03/01/17, 02/28/16. FINDINGS: There are scattered areas of fibroglandular density IMPRESSION: There is no radiographic evidence for malignancy. ASSESSMENT: BI-RADS Category 1: Negative RECOMMENDATION: Routine screening mammogram in 1 year. A lay language report of this examination will be provided to the patient. Reymundo Willis M.D. Diagnostic Radiologist [email or web address] RYAN/Dictated by: Reymundo Willis MD @ 10/11/2023 9:22:00 AM (Electronically Signed)
== END 2023-10-11 07:31 | disposition home or self-care (01) ==
LOC: MAMMO 07:31
PROVIDERS: PCP Family Medicine; Visit Provider Family Medicine
DX: Z12.31 Encounter for screening mammogram for malignant neoplasm of breast (principal)
CPT/HCPCS: 77063; 77067

== ENCOUNTER 2024-06-17 08:57 | Outpatient (CLI) | payer MEDICARE, OTHER, SELFPAY ==
--- NOTE | 2024-06-17 09:15 | MR_ITS ---
EXAM: MRI of the RIGHT SHOULDER, without contrast CLINICAL INFORMATION: Female, 83 years old, with right shoulder pain INDICATION: Evaluate for rotator cuff or biceps tear. PRIOR SURGERY: None reported. PLAIN FILMS: Radiographs 04/23/2023 COMPARISONS: No prior MRIs available. TECHNICAL INFORMATION: Using a 1.5T MR scanner and a localizing surface coil: Coronals: PD, T2FS Sagittals: PDFS, T2 Axials: PD, PDFS SEDATION: None CONTRAST: None FINDINGS: Bones: Proximal humerus: No fracture or marrow edema/pathology. No humeral Hill-Sachs or reverse Hill-Sachs lesion/impaction or contusion. Glenoid: No fracture or marrow edema/pathology. No osseous Bankart lesion. Rotator cuff and muscles/tendons: Supraspinatus: Mild to moderate supraspinatus tendinosis, with a small region of interstitial splitting involving the distal tendon at the insertional footprint measuring 1.0 cm in length (coronal series 5 image 15). No full-thickness tendon tearing, retraction, or muscle belly atrophy. Infraspinatus: Mild infraspinatus tendinosis, without tear. Teres minor: No tendinopathy, tear or atrophy. Subscapularis: No tendinopathy, tear or atrophy. Deltoid: No strain or atrophy. Coracoacromial arch: Acromion morphology: The acromion has type II morphology. No discrete subacromial osseous spur or os acromiale. Acromiohumeral space: The acromiohumeral space is within normal limits. Coracohumeral space: The coracohumeral space is within normal limits. Acromioclavicular joint: Joint: Mild to moderate AC joint arthrosis. Mild inferior osteophytosis contacts the underlying supraspinatus myotendinous junction. Ligaments: Coracoclavicular ligaments are intact. Bursae: Subacromial-subdeltoid: Moderate subacromial/subdeltoid bursitis. Subcoracoid: No convincing subcoracoid bursal thickening/bursitis. Biceps tendon: The long head of the biceps tendon is present within the bicipital groove. The intra-articular and extra-articular segments are intact without tendinosis, tenosynovitis, or displacement. Glenohumeral joint: Effusion/cyst: No significant glenohumeral joint effusion. Articular cartilage: There appears broad-based grade 2 chondral thinning of the humeral head and glenoid articular cartilage, without well-defined full-thickness chondral defect. Loose bodies: No discrete intra-articular body within the joint. Labrum:?Degenerative fraying and tearing of the superior labrum. No other definite evidence for labral tear. No paralabral ganglion cyst is identified. Inferior glenohumeral ligament/axillary pouch:?Intact. The axillary pouch is normal in thickness and signal. No evidence of adhesive capsulitis or capsular injury. IMPRESSION: 1. Moderate supraspinatus tendinosis with a small region of low-grade interstitial splitting of the distal tendon at the insertional footprint measuring 1.0 cm in length. No high-grade or full-thickness tendon tear. 2. Mild infraspinatus tendinosis, without tear. 3. Moderate subacromial/subdeltoid bursitis. 4. Mild to moderate AC joint arthrosis with mild inferior osteophytosis. 5. Mild glenohumeral joint degenerative change without well-defined full- thickness chondral defect. Degenerative fraying and tearing of the superior labrum. 6. No tendinopathy, tear, or displacement of the long head of the biceps tendon. KME Electronically signed on 06/17/2024 7:00:00 PM by Steffany Yuen M.D.
== END 2024-06-17 08:58 | disposition home or self-care (01) ==
LOC: MRI 09:00
PROVIDERS: PCP Family Medicine; Visit Provider Physician Assistant Surgical
DX: M25.511 Pain in right shoulder (principal); M75.101 Unspecified rotator cuff tear or rupture of right shoulder, not specified as traumatic; M75.51 Bursitis of right shoulder; M19.011 Primary osteoarthritis, right shoulder; S43.431A Superior glenoid labrum lesion of right shoulder, initial encounter
CPT/HCPCS: 73221

== ENCOUNTER 2024-06-30 08:05 | Outpatient (CLI) | payer MEDICARE, OTHER, SELFPAY | END 2024-06-30 08:06 | disposition home or self-care (01) | LOC: NFLDREF 07-05 18:13 | PROVIDERS: PCP Family Medicine; Referring Provider Family Medicine; Visit Provider Family Medicine | DX: M81.0 Age-related osteoporosis without current pathological fracture (principal); E78.5 Hyperlipidemia, unspecified; E55.9 Vitamin D deficiency, unspecified; E03.9 Hypothyroidism, unspecified; I10 Essential (primary) hypertension | CPT/HCPCS: 80053; 80061; 82306; 84443 ==

== ENCOUNTER 2024-10-06 08:15 | Outpatient (RCR) | payer MEDICARE, OTHER, SELFPAY ==
--- NOTE | 2024-07-28 16:44 | PT.OPEX ---
PT [place] Outpatient Eval PT [facility] Outpatient Eval Start: 07/28/24 14:14 Freq: Status: Active Protocol: Document 07/28/24 14:14 ELDER (Rec: 07/28/24 16:21 ELDER [id number]) E-signed By Michelle Murillo DPT Physical Therapy Outpatient Evaluation Insurance Information Recert Due Date 10/26/24 Insurance Name Medicare B,Other; See Comments Insurance Information/Comments Medical Diagnosis R shoulder bursitis Treating Diagnosis R shoulder pain, impaired R shoulder ROM, impaired R shoulder mobility/strength, impaired functional use of R shoulder/UE, interrupted sleep Imaging Report Information MRI IMPRESSION: 1. Moderate supraspinatus tendinosis with a small region of low-grade interstitial splitting of the distal tendon at the insertional footprint measuring 1.0 cm in length. No high-grade or full-thickness tendon tear. 2. Mild infraspinatus tendinosis, without tear. 3. Moderate subacromial/ subdeltoid bursitis. 4. Mild to moderate AC joint arthrosis with mild inferior osteophytosis. 5. Mild glenohumeral joint degenerative change without well-defined full-thickness chondral defect. Degenerative fraying and tearing of the superior labrum. 6. No tendinopathy, tear, or displacement of the long head of the biceps tendon. Subjective Subjective Patient reports chronic R shoulder pain for the past couple of years. She denies any injury, trauma, or falls. States pain will fluctuate some depending on activity level, use of R shoulder/UE. She denies pain at rest. Reports increased pain with reaching up/back/out or with lifting/pushing/pulling. States she has pain with dressing, toileting, kitchen activities like stirring, reaching for the seat belt. Pain up to 6-7/10 with use. Sleep is interrupted. Patient had an MRI, no RC tear. dx with shoulder bursitis. Patient had cortisone injection with WILLA Hernandez on June 30. She reports feeling better for a couple of days and then the pain returned. She is using tylenol OA before bed, occasionally during the day. Hasn't tried ice/heating pad. States most of her pain is localized to R anterior shoulder. Date of Last Physician Visit 06/30/24 Current Work Status Retired Assessment Assessment/Impression Patient is an 83 year old female with R shoulder pain, impaired R shoulder ROM, impaired R shoulder mobility/ strength, impaired functional use of R shoulder/UE, interrupted sleep. She denies pain at rest. Pain up to 6-7 /10 with use of R shoulder/UE. Sleep is interrupted. Patient is using tylenol OA before bed and on occasion during the day. R shoulder pain is localized to R anterior shoulder. Patient is tight, tender with palpation R UT, supraspinatus, RC tendons around lateral shoulder, bicep tendon/ anterior shoulder. R shoulder AROM: flex 135 degrees with pain, abd/scap 130 degrees, IR with hand behind R hip, ER with hand to back of head. MMT R Shoulder: flex 4-/5 with pain, scap 3+/5 with pain, ER 4/5 with pain, IR 4/5 without pain. Speeds Test positive with pain/weakness. CO impingement test/HK test positive with pain. Supraspinatus test positive with pain/weakness. Patient with forward head, rounded shoulders posture. Trial with kinesiotaping of R shoulder this session. Patient reports taping feels supportive, good , helpful, less pain. Able to initiate some exercises for HEP. Patient would benefit from skilled PT for pain/sx management, improved R shoulder ROM, improved R shoulder/UE mobility/strength, return to functional use of R shoulder/UE, and establishment of HEP. Plan of Care Rehabilitation Potential Good Physical Therapy Goals 1. Decrease R shoulder pain to less than/equal to 3/10 with daily/household activities and with the progression of PT activities over the next 4-6 weeks. 2. Decrease R shoulder pain so that patient is able to sleep through the night on a regular basis within 4-6 weeks. 3. Improve R shoulder AROM over the next 6-8 weeks for return to daily/household activities without flare up of pain. 4. Patient will be educated on posture and body mechanics over the next 4-6 weeks for decreased stress to UBN/shoulder region, improved shoulder mechanics, and decreased shoulder pain. 5. Improve R shoulder strength over the next 10-12 weeks for return to daily/household activities without flare up of pain. 6. Patient will be I with HEP within 12 weeks for progression toward above goals, ongoing self management of pain/sx, ongoing self improvements in posture/shoulder strength/ mechanics, and for return to daily/household activities without flare up of pain. Coordination/Communication With Referral Source Treatment Plan/Direct Interventions Manual Therapy,Therapeutic Exercises Frequency/Duration 1x/week Patient Will Be Discharged From Therapy Completion of LTG(s),Skills Plateau,Independent w/HEP, Independently Progressing Evaluation Billing Untimed Code Treatment Minutes 16 Complexity Moderate Certification Information Initial Certification Date 07/28/24 Ending Certification Date 10/26/24 Provider Signature Required Yes Provider Signature Shows Agreement With POC & Medical Necessity Physician NPI Number Write NPI# Here Physician Comment/Change : Physician Signature & Date Requested Please Sign/Date Here
== END 2025-02-03 23:59 | disposition home or self-care (01) ==
PROVIDERS: PCP Family Medicine; Visit Provider Physician Assistant Surgical
DX: M75.51 Bursitis of right shoulder (principal); Z51.89 Encounter for other specified aftercare
CPT/HCPCS: 97110; 97140; 97162

== ENCOUNTER 2024-10-14 12:46 | Outpatient (CLI) | payer MEDICARE, OTHER, SELFPAY ==
--- NOTE | 2024-10-14 13:00 | CRLHL7_ITS ---
For Patients: As a result of the Century Cures Act, medical imaging exams and procedure reports are released immediately into your electronic medical record. You may view this report before your referring provider. If you have questions, please contact your health care provider. INDICATION: BILATERAL SCREENING MAMMOGRAM, ASYMPOTMATIC 83 Y/O FEMALE COMPARISON: 10/11/2023, 09/20/2022, 03/01/2017 TECHNIQUE: Digital mammogram in CC and MLO projections including computer-aided detection (CAD) and tomosynthesis. BREAST COMPOSITION: The breasts are almost entirely fatty. FINDINGS: No suspicious findings. ASSESSMENT: BI-RADS 1 Negative RECOMMENDATION: Annual screening mammogram. A lay language report of this examination will be provided to the patient. Dictated by: Ann-Marie Jesus MD @ 10/15/2024 13:35:18 (Electronically Signed)
--- NOTE | 2024-10-14 13:30 | CRLHL7_ITS ---
For Patients: As a result of the Century Cures Act, medical imaging exams and procedure reports are released immediately into your electronic medical record. You may view this report before your referring provider. If you have questions, please contact your health care provider. DXA BONE MINERAL DENSITY STUDY Current height (in): 62. Weight (lb): 165. Menopause age: 41. Ethnicity: White. 1. Have you had a previous hip or vertebral fracture? No. 2. Have you had any fractures during your adult life which did not result from significant trauma (e.g., auto accident)? No. 3. Did either of your parents have a hip fracture? No. 4. Do you smoke? No. 5. Have you ever taken Glucocorticoids? No. 6. Do you have rheumatoid arthritis? No. 7. Do you have secondary osteoporosis? No. 8. Do you drink 3 or more alcoholic drinks per day? No. 9. Are you being treated for osteoporosis? No. 10. Have you ever taken any of the following medications: Actonel, Evista, Fosamax, Miacalcin, Reclast, Boniva, Forteo, HRT (i.e. estrogen/hormone therapy), Protelos, Prolia, Vitamin D, Calcium, other ??? please specify. ANSWER: Yes, Fosamax, Vitamin D, HRT and Calcium. 11. Do you have any of the following medical conditions: Anorexia or bulimia, asthma or emphysema, end stage renal disease, hyperparathyroidism, any seizure disorders, cancer, inflammatory bowel diseases, hysterectomy, other ??? please specify. ANSWER: Yes, Hysterectomy. 12. What was your maximum height (inches)? 64. 13. Do you perform weight bearing exercise regularly? No. 14. Do you regularly consume dairy products? Yes. 15. Do you drink caffeinated beverages? Yes. 16. At what age did your period start? 16. 17. Are you premenopausal? No. 18. How many full term pregnancies have you had? 3. 19. Have you ever missed your period for more than 6 months in a row (not including or menopause)? No. TECHNIQUE: Bone mineral density study was performed using the [employer]. FINDINGS: The results of the study expressed as bone mineral density (BMD) are as follows: Lumbar spine L2-L3: BMD: 1.278 g/cm2. T-score: 2.0. Z-score: 4.8 . Neck Left: BMD: 0.693 g/cm2. T-score: -1.4. Z-score: 1.0. Right: BMD: 0.711 g/cm2. T-score: -1.2 . Z-score: 1.1. Total Left: BMD: 0.964 g/cm2. T-score: 0.2. Z-score: 2.3. Right: BMD: 0.862 g/cm2. T-score: -0.7. Z-score: 1.5. IMPRESSION: Osteopenia. COMPARISON: Compared with scan of 09/20/2922, the bone mineral density has increased by 0.4 percent at the spine and increased by 0.7 percent at the hip. Compared with scan of 07/29/17, the bone mineral density has decreased by 1.5 percent at the spine and increased by 12.7 percent at the hip. FRAX 10-year Fracture Risk Major Osteoporotic Fracture: 13 percent Hip Fracture: 3.1 percent Reported Risk Factors: [place] () Neck BMD=0.693, BMI=30.2 Qing Ibanez M.D. Diagnostic Radiologist [email or web address] TERESA/rukhsana DW/Dictated by: Qing Ibanez MD @ 10/18/2024 6:54:00 AM (Electronically Signed)
== END 2024-10-14 12:47 | disposition home or self-care (01) ==
LOC: MAMMO 12:47
PROVIDERS: PCP Family Medicine; Visit Provider Family Medicine
DX: Z12.31 Encounter for screening mammogram for malignant neoplasm of breast (principal); M81.0 Age-related osteoporosis without current pathological fracture; M85.89 Other specified disorders of bone density and structure, multiple sites
CPT/HCPCS: 77063; 77067; 77080